=== PATIENT | female | born 1990 | race Caucasian/White ===

== ENCOUNTER 2017-11-12 19:07 | Emergency (ER) | payer SELFPAY ==
[2017-11-12 20:46] LABS: ABSOLUTE EOSINOPHILS # (AUTO) 0.1 10^3/uL (0.0-0.6); ABSOLUTE LYMPHOCYTES (AUTO) 1.3 10^3/uL (0.5-4.7); ABSOLUTE MONOCYTES (AUTO) 0.8 10^3/uL (0.1-1.4); ABSOLUTE NEUT (AUTO) 7.9 10^3/uL (1.7-8.2); BASOPHILS % (AUTO) 0.3 % (0-2); EOSINOPHILS % (AUTO) 0.9 % (0-6); HEMATOCRIT 40.6 % (36.0-47.0); HEMOGLOBIN 13.6 g/dL (12.0-15.5); HGB HCT DIFFERENCE 0.2; LYMPHOCYTES % (AUTO) 13.2 % (13-45); MEAN CORPUSCULAR HEMOGLOBIN 28.4 pg (27.0-33.4); MEAN CORPUSCULAR HGB CONC 33.6 g/dL (32.0-36.0); MEAN CORPUSCULAR VOLUME 85 fl (80-97); MONOCYTES % (AUTO) 7.7 % (3-13); RED CELL DISTRIBUTION WIDTH 14.5 % (11.5-14.0); SEGMENTED NEUTROPHILS % (AUTO) 77.9 % (42-78); WHITE BLOOD COUNT 10.1 10^3/uL (4.0-10.5)
[2017-11-12 21:12] LABS: ALANINE AMINOTRANSFERASE 26 U/L (9-52); ALKALINE PHOSPHATASE 60 U/L (38-126); ANION GAP 14 (5-19); ASPARTATE AMINO TRANSFERASE 20 U/L (14-36); BILIRUBIN,DIRECT 0.2 mg/dL (0.0-0.4); BILIRUBIN,TOTAL 0.6 mg/dL (0.2-1.3); BLOOD UREA NITROGEN 12 mg/dL (7-20); CALCIUM 10.2 mg/dL (8.4-10.2); CARBON DIOXIDE 24 mmol/L (22-30); CHLORIDE 102 mmol/L (98-107); CREATININE RESULT 0.65 mg/dL (0.52-1.25); GLUCOSE 92 mg/dL (75-110); POTASSIUM 4.2 mmol/L (3.6-5.0); SODIUM 139.5 mmol/L (137-145); TOTAL PROTEIN 8.1 g/dL (6.3-8.2)
[2017-11-12 21:16] LABS: C-REACTIVE PROTEIN < 5.0 mg/L (<10.0)
--- NOTE | 2017-11-12 21:16 | RADIOLOGY REPORT (SQ) ---
EXAM DESCRIPTION: CT HEAD WITHOUT COMPLETED DATE/TIME: 11/12/2017 9:00 pm REASON FOR STUDY: CARDONA, aunt had hx ruptured aneurysm COMPARISON: None. TECHNIQUE: Axial images acquired through the brain without intravenous contrast. Images reviewed wi th bone, brain and subdural windows. Images stored on PACS. All CT scanners at this facility use dose modulation, iterative reconstruction, and/or weight based d osing when appropriate to reduce radiation dose to as low as reasonably achievable (ALARA). [facility]: Dose Right [facility]: CareDose [facility]: Dose Right [facility]: Teradose 4D [facility]: Smart [employer] RADIATION DOSE: CT Rad equipment meets quality standard of care and radiation dose reduction techniq ues were employed. CTDIvol: 64.6 mGy. DLP: 1163 mGy-cm. mGy. LIMITATIONS: None. FINDINGS: VENTRICLES: Normal size and contour. CEREBRUM: No masses. No hemorrhage. No midline shift. No evidence for acute infarction. Normal gra y/white matter differentiation. No areas of low density in the white matter. CEREBELLUM: No masses. No hemorrhage. No alteration of density. No evidence for acute infarction. EXTRAAXIAL SPACES: No fluid collections. No masses. ORBITS AND GLOBE: No intra- or extraconal masses. Normal contour of globe without masses. CALVARIUM: No fracture. PARANASAL SINUSES: No fluid or mucosal thickening. SOFT TISSUES: No mass or hematoma. OTHER: No other significant finding. IMPRESSION: NORMAL BRAIN CT WITHOUT CONTRAST. EVIDENCE OF ACUTE STROKE: NO. COMMENT: Quality ID # [id number]: Final reports with documentation of one or more dose reduction techniques (e.g., Automated exposure control, adjustment of the mA and/or kV according to patient size, use of iterative reconstruction technique) TECHNICAL DOCUMENTATION: JOB ID: [id number] [employer]- All Rights Reserved
[2017-11-12] MEDS ORDERED: KETOROLAC TROMETHAMINE 60 MG/2 ML SDV IM ONE (22:12)
[2017-11-12] MEDS: HYDROCODONE/ACETAMINOPHEN 5-325 MG 6 TAB/DSPK PO PRN ×3 (22:13→22:31)
--- NOTE | 2017-11-12 22:18 | ER Document Report ---
ED General - General Chief Complaint: Headache <24 hrs old Stated Complaint: HEADACHE Time Seen by Provider: 11/12/17 20:05 Mode of Arrival: Ambulatory Information source: Patient, Friend Notes: Patient is a 27-year-old female comes emergency room complaining of a headache. She states the headache is on the top of her head to the left side covers an area approximately 2 inches and comes and goes. She states that it is nonspecific it has been doing this on and off for 2 months but the first 2 months has always gone away relatively soon and she did not think about it. The one on her head today has been there for 24 hours it has been pretty constant in it again it is in the same area area approximately 2 inches round and states that is tender to touch. Patient also states that the ear on the left side hurts as well. She denies any trauma she denies any real history of headaches. She does not smoke and she is under no stress currently. Family history is fairly pertinent for her and having a ruptured brain aneurysm that was fixed. Grandmother also at age 34 of a heart attack. Patient has not seen a primary care physician for this and is requesting a workup. She denies any visual problems. TRAVEL OUTSIDE OF THE [place] IN LAST 30 DAYS: No - HPI Patient complains to provider of: Headache on top of head Onset: Other - Off and on for a few months constant 24 hours Onset/Duration: Sudden, Constant, Persistent Quality of pain: Sharp, Stabbing, Other - Describes pain as a 2 inch area top left side of her head that at times feels like "a nail being driven into my head " Severity: Severe Pain Level: 4 Associated symptoms: Earache, Nausea Exacerbated by: Denies Relieved by: Denies, Other - Just goes away Similar symptoms previously: Yes Recently seen / treated by doctor: No - Related Data Allergies/Adverse Reactions: latex [Latex] Allergy (Verified 07/07/13 14:22) Past Medical History - General Information source: Patient Last Menstrual Period: Now - Social History Smoking Status: Never Smoker Cigarette use (# per day): No Chew tobacco use (# tins/day): No Smoking Education Provided: No Frequency of alcohol use: Occasional Drug Abuse: None 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 Lives with: Family Family History: Reviewed & Not Pertinent Patient has suicidal ideation: No Patient has homicidal ideation: No Renal/ Medical History: Denies: Hx Peritoneal Dialysis Past Surgical History: Reports: Hx Section - Immunizations Hx Diphtheria, Pertussis, Tetanus Vaccination: No Review of Systems - Review of Systems Constitutional: Weight gain EENT: No symptoms reported Cardiovascular: No symptoms reported Respiratory: No symptoms reported Gastrointestinal: No symptoms reported Genitourinary: No symptoms reported Female Genitourinary: No symptoms reported Musculoskeletal: No symptoms reported Skin: No symptoms reported Hematologic/Lymphatic: No symptoms reported Neurological/Psychological: No symptoms reported, Headaches -: Yes All other systems reviewed and negative Physical Exam - Vital signs Interpretation: Normal - Patient vital signs were not recorded at the time of my dictation however the triage vital signs showed a temp of 98.6 a pulse rate of 74 blood pressure 116/75 respiratory rate of 18 and 100% sat on room air. - General General appearance: Appears well In distress: None - HEENT Head: Normocephalic, Atraumatic Eyes: Normal Conjunctiva: Normal Cornea: Normal Pupils: PERRL Anterior chamber: Normal Fundascopic: Normal Nerve palsy: No Visual osborn normal: Yes Ears: Normal External canal: Normal Tympanic membrane: Normal Sinus: Normal Nasal: Normal. No: Bloody discharge, Terrell deformity, Ecchymosis, Epistaxis, Purulent discharge, Septal hematoma, Swelling, Clear rhinorrhea, Other Mouth/Lips: Normal. No: Angioedema, Caries, Dental fracture, Laceration, Lesions, Other Mucous membranes: Normal, Moist Pharynx: Normal Neck: Normal. No: Anterior cervical chain, Posterior cervical chain, Brudzinski , Carotid bruit, Kernig's, Lymphadenopathy, Meningismus, Neck mass, Shotty nodes , Subcutaneous emphysema, Supple, Thyroid nodule, Thyromegally, Other - Respiratory Respiratory status: No respiratory distress Chest status: Nontender Breath sounds: Normal Chest palpation: Normal - Cardiovascular Rhythm: Regular Heart sounds: Normal auscultation Murmur: No - Abdominal Inspection: Normal Distension: No distension Bowel sounds: Normal Tenderness: Nontender Organomegaly: No organomegaly - Neurological Orientation: AAOx4 Adeline Coma Scale Eye Opening: Spontaneous Chappell Coma Scale Verbal: Oriented Adeline Coma Scale Motor: Obeys Commands Chappell Coma Scale Total: 15 Speech: Normal Cranial nerves: Normal Cerebellar coordination: Normal. No: Gait ataxia, Heel-herrera, Finger-nose rhombey, Rapid alt. 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 Her CT is negative all labs are normal. I have suggested though that she follow-up which she says she has a primary care physician and she will follow-up with him this week. I explained to her that there is nothing in my findings tonight that are acute and that at this point she may follow up with her primary care physician. She agreed and understood. I have given her copy of her labs and her CT report to get her started. 11/12/17 23:47 Discharge - Discharge Clinical Impression: Headache Qualifiers: Headache type: unspecified Headache chronicity pattern: acute headache Intractability: not intractable Qualified Code(s): R51 - Headache Condition: Good Disposition: HOME, SELF-CARE Instructions: Cluster Headache ([facility]) Additional Instructions: Home rest. We will try you with the ibuprofen 600 mg tablets for the type of headache or presenting with. As we discussed I would follow-up with your primary care physician Belinda you have for a recheck and reevaluation possibly need an MRI of the head or neurologic referral for new onset migraines. Prescriptions: Ibuprofen 600 mg PO TID #21 tablet Forms: Return to Work
== END 2017-11-12 23:14 | disposition home or self-care (01) ==
LOC: ER 19:07
DX: R51 Headache (principal); H92.02 Otalgia, left ear; R11.0 Nausea; R63.5 Abnormal weight gain; Z82.49 Family history of ischemic heart disease and other diseases of the circulatory system
CPT/HCPCS: 36415; 70450; 80053; 84443; 85025; 86140; 99284

== ENCOUNTER 2018-11-09 00:17 | Emergency (ER) | payer SELFPAY ==
[2018-11-09 01:11] LABS: ABSOLUTE BASOPHILS # (AUTO) 0.1 10^3/uL (0.0-0.2); ABSOLUTE EOSINOPHILS # (AUTO) 0.1 10^3/uL (0.0-0.6); ABSOLUTE LYMPHOCYTES (AUTO) 1.8 10^3/uL (0.5-4.7); ABSOLUTE MONOCYTES (AUTO) 0.7 10^3/uL (0.1-1.4); ABSOLUTE NEUT (AUTO) 5.1 10^3/uL (1.7-8.2); BASOPHILS % (AUTO) 0.7 % (0-2); EOSINOPHILS % (AUTO) 1.9 % (0-6); HEMATOCRIT 37.9 % (36.0-47.0); HEMOGLOBIN 12.6 g/dL (12.0-15.5); LYMPHOCYTES % (AUTO) 23.2 % (13-45); MEAN CORPUSCULAR HGB CONC 33.3 g/dL (32.0-36.0); MEAN CORPUSCULAR VOLUME 84 fl (80-97); MONOCYTES % (AUTO) 9.2 % (3-13); PLATELET COUNT 182 10^3/uL (150-450); RED BLOOD COUNT 4.52 10^6/uL (3.72-5.28); RED CELL DISTRIBUTION WIDTH 14.7 % (11.5-14.0); TOTAL CELLS COUNTED % (AUTO) 100 %; WHITE BLOOD COUNT 7.8 10^3/uL (4.0-10.5)
[2018-11-09 01:20] LABS: ANION GAP 10 (5-19); BLOOD UREA NITROGEN 18 mg/dL (7-20); CALCIUM 9.7 mg/dL (8.4-10.2); CARBON DIOXIDE 26 mmol/L (22-30); CHLORIDE 104 mmol/L (98-107); GLUCOSE 90 mg/dL (75-110); POTASSIUM 4.4 mmol/L (3.6-5.0); SODIUM 140.1 mmol/L (137-145)
--- NOTE | 2018-11-09 01:35 | RADIOLOGY REPORT (SQ) ---
EXAM DESCRIPTION: XR CHEST 2 VIEWS COMPLETED DATE/TME: 11/09/2018 00:51 CLINICAL HISTORY: 28 years, Female, pleuritic back pain COMPARISON: None. NUMBER OF VIEWS: 2 TECHNIQUE: Frontal and lateral views of the chest LIMITATIONS: None. FINDINGS: Heart size is normal. Lungs are clear. No pneumothorax IMPRESSION: Negative chest copyright 2010 [employer]- All Rights Reserved
--- NOTE | 2018-11-09 01:49 | ER Document Report ---
ED General - General Chief Complaint: Shoulder Pain Stated Complaint: SHOULDER PAIN Time Seen by Provider: 11/09/18 00:30 Notes: Patient is a 28-year-old female presents with complaint of pain into the middle of her back. Says the burning sensation goes up and down the middle of her back over the thoracic spine. When asked if it is worse with complete breathing she says kind of an kind of not. She says sometimes she notices that it seems to feel a bit worse with breathing and sometimes she can be breathing and she does not notice any increase of pain. She said the pain is more steady. She also complains of a lump that she palpated in her upper outer quadrant of her left breast. At this point with her doctor on Saturday to see about all the symptoms. She denies any fevers. No vomiting. No diarrhea. No weakness numbness in her upper extremities. No coughing of blood. Her only risk factor for PE is that she is on control which she admits she sometimes takes a control and sometimes does not. She does not think she be . She denies any leg pain or leg swelling. No smoking. No other complaints at this time. TRAVEL OUTSIDE OF THE [place] IN LAST 30 DAYS: No - Related Data Allergies/Adverse Reactions: latex [Latex] Allergy (Verified 07/07/13 14:22) Past Medical History - Social History Smoking Status: Never Smoker Chew tobacco use (# tins/day): No Frequency of alcohol use: None Drug Abuse: None Family History: Reviewed & Not Pertinent Patient has suicidal ideation: No Patient has homicidal ideation: No Renal/ Medical History: Denies: Hx Peritoneal Dialysis Past Surgical History: Reports: Hx Section - Immunizations Hx Diphtheria, Pertussis, Tetanus Vaccination: No Review of Systems - Review of Systems Notes: My Normal Review Basic REVIEW OF SYSTEMS: CONSTITUTIONAL : Denies fever, chills, or sweats. Denies recent illness. EENT: Denies eye, ear, throat, or mouth pain or symptoms. Denies nasal or sinus congestion. CARDIOVASCULAR: Denies chest pain. RESPIRATORY: Denies cough, cold, or chest congestion. Denies shortness of breath, difficulty breathing, or wheezing. GASTROINTESTINAL: Denies abdominal pain. Denies nausea, vomiting, or diarrhea. GENITOURINARY: Denies difficulty urinating, painful urination, burning, frequency, or blood in urine. MUSCULOSKELETAL: Pain over mid thoracic spine. SKIN: Denies rash or skin lesions. NEUROLOGICAL: Denies altered mental status or loss of consciousness. ALL OTHER SYSTEMS REVIEWED AND NEGATIVE. Physical Exam - Vital signs Vitals: Temp Pulse Resp BP Pulse Ox 98.0 F 81 17 123/78 100 11/09/18 00:22 11/09/18 00:22 11/09/18 00:22 11/09/18 00:22 11/09/18 00:22 - Notes Notes: General Appearance: Well nourished, alert, cooperative, no acute distress, no obvious discomfort. Well-appearing. Vitals: reviewed, See vital signs table. Head: no swelling or tenderness to the head Eyes: PERRL, EOMI, Conjuctiva clear Neck: Supple, no neck tenderness, No thyromegaly Breast exam: Breast exam performed with female nurse, Aide, in the room. Patient has what appears to be just a very small area of fibrocystic changes in the left upper outer quadrant of the breast. There is no redness or swelling to the breast. Areola and nipple area is normal-appearing without retraction. No discharge. Back: No reproducible pain to palpation over the back. No abnormalities to palpation along thoracic spine. Lungs: No wheezing, No rales, No rhonci, No accessory muscle use, good air exchange bilaterally. Heart: Normal rate, Regular rythm, No murmur, no rub Abdomen: Normal BS, soft, No rigidity, No abdominal tenderness, No guarding, no rebound Skin: warm, dry, appropriate color, no rash Neuro: speech clear, oriented x 3, normal affect, responds appropriately to questions. Course - Re-evaluation Re-evalutation: 11/09/18 06:24 This exam patient has small amount of nodularity in the left upper outer quadrant that feels consistent with fibrocystic changes. I suspect this is what it is however I told the patient she still follow-up with her doctor on Saturday to discuss possible outpatient mammogram. She has no redness or swelling to the breast. Nothing to cause concern for infection. I am not exactly sure the exact cause of the burning type sensation in the middle of her back. She has no redness or swelling to palpation of the back. Patient herself is concerned for lung cancer or blood clot in her lungs. I think lung cancer is highly unlikely as the patient does not smoke and has no risk factors for lung cancer and is only 20 years of age. Chest x-ray shows no evidence of nodularity in the lungs. I discussed with her workup for PE. I told her I think PE is highly unlikely; however would go forward with blood work. I did obtain a d-dimer which is negative. I think CT of the chest is not necessary as the risk of radiation throughout outweigh the benefits and that the patient is extremely low risk for PE as her only risk factor is control; however, she does not smoke at all in conjunction with control making this much lower risk factor. Also patient has no leg pain, no leg swelling, is not tachycardic, is not tachypneic, is not hypoxemic, and has a negative d-dimer. At this time we will have the patient follow-up closely with her primary care doctor on Saturday as scheduled. I encouraged her return to ER if she has worsening of her symptoms or feels unwell. Patient agrees with plan and will be discharged home. Dictation of this chart was performed using voice recognition software; therefore, there may be some unintended grammatical errors. 11/09/18 06:28 - Vital Signs Vital signs: Temp Pulse Resp BP Pulse Ox 98.1 F 62 16 125/71 98 11/09/18 02:02 11/09/18 02:02 11/09/18 02:02 11/09/18 02:02 11/09/18 02:02 - Laboratory Result Diagrams: 11/09/18 00:55 11/09/18 00:55 Laboratory results interpreted by me: 11/09/18 00:55 RDW 14.7 H Discharge - Discharge Clinical Impression: Breast lump in female Back pain Qualifiers: Back pain location: thoracic back pain Chronicity: unspecified Back pain laterality: midline Qualified Code(s): M54.6 - Pain in thoracic spine Condition: Good Disposition: HOME, SELF-CARE Additional Instructions: Please follow up with your doctor on Saturday as scheduled. Talk to them about possible Mammogram and reevaluation of your back pain. Please return to the ER immediately if you have fevers, redness or swelling to the breast, difficulty breathing, or if you feel that you are worsening in any way.
[2018-11-09 02:11] VITALS: BP 125/71
== END 2018-11-09 02:11 | disposition home or self-care (01) ==
LOC: ER 00:17
DX: M54.6 Pain in thoracic spine (principal); N63.21 Unspecified lump in the left breast, upper outer quadrant; Z91.040 Latex allergy status
CPT/HCPCS: 36415; 71046; 80048; 84703; 85025; 85379; 99284